=== PATIENT | male | born 1970 | race African-American/Black ===

== ENCOUNTER 2016-10-28 07:48 | Emergency (ER) | payer OTHER ==
[~2016-10-28] VITALS: Ht 180.3 cm; Wt 95.3 kg
[2016-10-28 07:56] VITALS: BP 117/77
--- NOTE | 2016-10-28 08:32 | ED GENERAL ADULT ---
History of Present Illness General Chief Complaint: General Adult Stated Complaint: FEVER, LEFT LEG SWELLING Source: patient, old records Exam Limitations: no limitations Vital Signs & Intake/Output Vital Signs & Intake/Output Vital Signs Date Time Temp Pulse Resp B/P Pulse O2 O2 Flow FiO2 Ox Delivery Rate 10/28 0820 Room Air Room Air 10/28 0756 98.2 99 16 117/77 96 Room Air Allergies Coded Allergies: No Known Allergies (10/28/16) Triage Note: PT STATES HE HAS LEFT LEG SWELLING THAT STARTED 10 DAYS AGO AND STATSE HE HAS BEEN HAVING FEVERS AT NIGHT AND HE HAS PAIN IN HIS LOWER BACK. Triage Nurses Notes Reviewed? yes Onset: Gradual Duration: intermittent, waxing and waning Timing: recent history Injury Environment: home Severity: mild Severity Numbers: 3 No Modifying Factors: none Associated Symptoms: denies HPI: 46-year-old male with history of hepatitis B presents emergency room complaining of a 10 day history of intermittent waxing and waning bilateral foot and ankle swelling. He states the symptoms are the worst at the end of the day and are not there when he wakes up in the morning. Patient states that he works on his feet all day. He is also complaining of a past history of for the past 1 week of intermittent objective fever chills sore throat and rhinorrhea congestion and nonproductive cough. He is not taken anything for his symptoms. He does not take any medication on a regular basis. No chest pain shortness of breath. Denies any leg or calf pain swelling numbness or tingling. No rashes to his skin no recent tick or insect bite. The patient denies any known injury or trauma Past History Travel History Traveled to [place] past 21 day No Medical History Any Pertinent Medical History? see below for history Gastrointestinal: HEPATITIS B Surgical History Surgical History: non-contributory Psychosocial History What is your primary language Jamaican Tobacco Use: Never used ETOH Use: denies use Illicit Drug Use: denies illicit drug use Family History Hx Contributory? No Review of Systems Review of Systems Constitutional: Reports: see HPI. All Other Systems: Reviewed and Negative Comments Review of systems: See HPI, All other systems negative. Constitutional, no chills fever, no malaise HEENT: No visual changes sore throat no congestion Cardiovascular: No chest pain , no palpitation Skin,no rashes, no change in skin Respiratory: No dyspnea no cough no sputum GI: No nausea no vomiting, no diarrhea, : No dysuria Muscle skeletal: No joint pain, no back pain, no neck pain, Neurologic: No numbness no headache Psych: No stress Heme/endocrine: No bruising no bleeding Immunology: No lymphadenopathy Physical Exam Physical Exam General Appearance: well developed/nourished, alert, awake Comments: Well-developed well-nourished person in no acute distress Head/Face: Atraumatic, no maxillary/frontal sinus tenderness, no facial swelling Eyes: PERRL, EOMI, no conjunctival injection. No nystagmus Ear:External auditory canals clear, no erythema, no FB. Nose: atraumatic.Normal inspection Throat: Moist mucous membranes.Pharynx normal. No pharyngeal erythema/exudate seen. No stridor/drooling or assymetry. No swelling or edema. Neck: Supple, no lymphadenopathy, FROM Back: Nontender, no CVA tenderness. Full range of motion Cardiovascular: Regular rate and rhythms no murmurs rubs or gallops Respiratory: Chest nontender.There were no bony deformities, no asymmetry. No respiratory distress. Patient speaking in full complete sentences. Breath sounds clear to auscultation bilaterally: NO W/R/R Abdomen: Soft, nontender nondistended, no appreciable organomegaly. Normal bowel sounds. No rebound/guarding, No appreciable enlargement of the abdominal aorta, No ascites. Extremity: No edema, calves are nontender negative Homans sign full range of motion of extremities, normal and equal pulses bilaterally, 5 out of 5 strength noted to bilateral upper and lower extremities Neuro: Alert oriented x3, motor sensory normal, There were no obvious focal neurologic abnormalities. Skin: No appreciable rash on exposed skin, skin is warm and dry. Psych: Mood and affect is normal, memory and judgment is normal. Core Measures ACS in differential dx? No CVA/TIA Diagnosis: No Severe Sepsis Present: No Septic Shock Present: No Progress Differential Diagnoses I considered the following diagnoses in my evaluation of the patient: Peripheral edema DVT cellulitis acute kidney injury CHF electrolyte abnormality Plan of Care: Orders Procedure Date/time Status COMPREHENSIVE METABOLIC PANEL 10/28 0845 Complete CBC WITHOUT DIFFERENTIAL 10/28 0845 Complete B-TYPE NATRIURETIC PEP (BNP) 10/28 0845 Complete Laboratory Tests 10/28/16 0850: Anion Gap 12, Estimated GFR > 60, BUN/Creatinine Ratio 12.2, Glucose 132 H, Calcium 9.5, Total Bilirubin 0.7, AST 59, ALT 103 H, Alkaline Phosphatase 79, Orn-O-Mbipmowjudb Pept 11.3, Total Protein 7.7, Albumin 4.0, Globulin 3.7, Albumin/Globulin Ratio 1.1, CBC w Diff NO MAN DIFF REQ, RBC 5.44, MCV 79.0 L, MCH 25.5 L, RDW 13.6, MPV 9.3, Gran % 53.4, Lymphocytes % 33.3, Monocytes % 12.1 H, Eosinophils % 0.8, Basophils % 0.4, Absolute Granulocytes 5.3, Absolute Lymphocytes 3.3, Absolute Monocytes 1.2 H, Absolute Eosinophils 0.1, Absolute Basophils 0, PUBS MCHC 32.3 L Labs ordered old records reviewed patient is nontoxic-appearing at this time resting comfortably I discussed with the patient at length all of their results. I had an extensive conversation regarding need for close follow up with their primary care physician this week as well as return precautions. I answered all of their questions, they feel comfortable with the plan and follow-up care. (BENNIE FOUNTAIN) Initial ED EKG: none Departure Departure Time of Disposition: 958 Disposition: HOME OR SELF CARE Condition: Stable Clinical Impression Primary Impression: Peripheral edema Referrals: PATIENT HAS NO PRIMARY CARE DR (PCP/Family) Additional Instructions: Follow-up with your primary care physician on Monday. Rest throughout the day keep her legs elevated when you're at home. Return anytime sooner with any concerns. Departure Forms: Customer Survey General Discharge Information Critical Care Note Critical Care Note Critical Care Time: non-applicable
[2016-10-28 09:04] LABS: ABSOLUTE BASOPHIL COUNT 0 /CUMM (0.0-0.2); ABSOLUTE EOSINOPHIL COUNT 0.1 /CUMM (0.0-0.7); ABSOLUTE GRANULOCYTE CT 5.3 /CUMM (1.4-6.5); ABSOLUTE LYMPH COUNT 3.3 /CUMM (1.2-3.4); ABSOLUTE MONOCYTE COUNT 1.2 /CUMM (0.10-0.60); BASOPHIL % 0.4 % (0.0-2.0); EOSINOPHIL % 0.8 % (0-5); GRANULOCYTE % 53.4 % (42.2-75.2); MEAN CORPUSCULAR HGB 25.5 PG (27.0-31.0); MEAN CORPUSCULAR HGB CONC 32.3 G/DL (33.0-37.0); MEAN PLATELET VOLUME 9.3 FL (7.4-10.4); PLATELET COUNT 212 /CUMM (130-400); RBC DISTRIBUTION WIDTH 13.6 % (11.5-14.5); RED BLOOD CELL CT 5.44 /CUMM (4.70-6.10); WHITE BLOOD CELL COUNT 9.9 /CUMM (4.8-10.8)
== END 2016-10-28 10:02 ==
LOC: ERH 07:48
PROVIDERS: Physician Assistant Medical
DX: R60.0 Localized edema (principal); R50.9 Fever, unspecified; J02.9 Acute pharyngitis, unspecified